=== PATIENT | female | born 1985 | race Caucasian/White ===

== ENCOUNTER 2018-05-09 13:35 | Day surgery (SDC) | payer OTHER ==
[~2018-05-09 13:35] MED LIST: BACL10 PO; BACL20 PO; CITA20 PO; CLON.5 PO; COPAXONE40 MG/1 ML INJ; COPAXONE40 MG/1 ML SQ; Cipro500 MG PO; DULO30 PO; DULO60; HYDHCL25 PO; MIRT15 PO; NITR100 PO; NITR100CA PO; NORT10S PO; TAMS.4ER PO; TECFIDERA240 MG PO; TOLT2ER PO; TRAZ50 PO; TROSPIUM CHLORI60 MG PO
== END 2018-05-09 14:58 | disposition home or self-care (01) ==
LOC: ATC 13:35
DX: G35 Multiple sclerosis (principal); F41.9 Anxiety disorder, unspecified
CPT/HCPCS: J2930

== ENCOUNTER 2018-05-10 14:31 | Day surgery (SDC) | payer OTHER ==
[2018-05-11] MEDS ORDERED: MONT10T PO (10:17)
[2018-05-11] MEDS ORDERED: OCREVUS300 MG/10 IV (10:17)
[2018-05-11] MEDS ORDERED: Flonase 0.05% N16 GM (10:17)
[2018-05-11] MEDS ORDERED: Mirena1 EACH VAG (10:18)
== END 2018-05-10 15:14 | disposition home or self-care (01) ==
LOC: ATC 14:31
DX: G35 Multiple sclerosis (principal); F41.9 Anxiety disorder, unspecified
CPT/HCPCS: J2930

== ENCOUNTER 2018-05-11 10:05 | Day surgery (SDC) | payer OTHER ==
[2018-05-11] MEDS ORDERED: MONT10T PO (10:17)
[2018-05-11] MEDS ORDERED: Flonase 0.05% N16 GM (10:17)
[2018-05-11] MEDS ORDERED: OCREVUS300 MG/10 IV (10:17)
[2018-05-11] MEDS ORDERED: Mirena1 EACH VAG (10:18)
== END 2018-05-11 10:45 | disposition home or self-care (01) ==
LOC: ATC 10:05
DX: G35 Multiple sclerosis (principal); F41.9 Anxiety disorder, unspecified
CPT/HCPCS: 96365; J2930

== ENCOUNTER 2018-05-12 00:25 | Day surgery (SDC) | payer OTHER ==
[~2018-05-12 00:25] MED LIST changes: +Flonase 0.05% N16 GM; +MONT10T PO; +Mirena1 EACH VAG; +OCREVUS300 MG/10 IV
== END 2018-05-12 16:24 | disposition home or self-care (01) ==
LOC: ATC 00:25
DX: G35 Multiple sclerosis (principal)
CPT/HCPCS: 96365; J2930

== ENCOUNTER → 2018-06-13 | Outpatient (CLI) | payer OTHER ==
[2018-06-14 13:39] LABS: Candida species (DNA Probe) Positive (NEGATIVE); G. vaginalis (DNA Probe) Positive (NEGATIVE); T. vaginalis (DNA Probe) Negative (NEGATIVE)
[2018-06-16 05:52] LABS: CHLAMYDIA TRACHOMATIS, NAA Negative (Negative); NEISSERIA GONORRHOEAE, NAA Negative (Negative)
== END | disposition home or self-care (01) ==
LOC: LAB SHORT 13:30 → LAB 13:30
PROVIDERS: Family Medicine
DX: L29.3 Anogenital pruritus, unspecified (principal); N89.8 Other specified noninflammatory disorders of vagina
CPT/HCPCS: 87480; 87491; 87510; 87591; 87660

== ENCOUNTER → 2019-03-03 | Outpatient (CLI) | payer OTHER ==
[2019-03-03 17:14] LABS: Source, Urine Clean Catch
[2019-03-03 17:58] LABS: Bilirubin, Urine Neg (Neg); Blood, Urine Neg (Neg); Glucose Qualitative, Urine Neg (Neg); Ketones, Urine Neg (Neg); Leukocyte Esterase, Urine 1+ (Neg); Nitrite, Urine Neg (Neg); Protein, Urine Neg (Neg); Specific Gravity, Urine 1.015 (1.003-1.022); Urobilinogen, Urine NORM (Normal)
[2019-03-03 18:20] LABS: Appearance, Urine Clear (Clear); Color, Urine Yellow (P-Yellow)
[2019-03-03 18:23] LABS: Bacteria Many /hpf; Red Blood Cells, Urine 0-2 /hpf (0-2); Squamous Epithelial Cells Few /hpf (Few)
== END | disposition home or self-care (01) ==
LOC: LAB SHORT 17:10 → LAB 17:10 → LAB FUT 03-02 11:15 → EDSTATUS 03-02 11:15
PROVIDERS: Physician Assistant
DX: R39.14 Feeling of incomplete bladder emptying (principal)
CPT/HCPCS: 81001; 87077; 87086; 87186

== ENCOUNTER → 2019-03-09 | Outpatient (CLI) | payer OTHER ==
[2019-03-12 02:08] LABS: CHLAMYDIA TRACHOMATIS, NAA Negative (Negative); NEISSERIA GONORRHOEAE, NAA Negative (Negative)
== END | disposition home or self-care (01) ==
LOC: LAB SHORT 16:30 → LAB 16:30
PROVIDERS: Family Medicine
DX: Z11.3 Encounter for screening for infections with a predominantly sexual mode of transmission (principal); N39.0 Urinary tract infection, site not specified
CPT/HCPCS: 87086; 87491; 87591

== ENCOUNTER → 2019-06-22 | Outpatient (CLI) | payer OTHER | END | disposition home or self-care (01) | LOC: LAB 12:10 → LAB SHORT 12:10 | DX: N39.0 Urinary tract infection, site not specified (principal) | CPT/HCPCS: 87077; 87086; 87186 ==

== ENCOUNTER → 2019-09-28 | Outpatient (CLI) | payer OTHER ==
[~2019-09-28] MED LIST changes: +AMIT25 PO; +HIPREX1 GM PO; +METPHE10 PO; +Zanaflex4 MG PO
== END | disposition home or self-care (01) ==
LOC: LAB SHORT 18:53 → LAB 18:53
DX: N39.0 Urinary tract infection, site not specified (principal); R30.0 Dysuria
CPT/HCPCS: 87086; 87147

== ENCOUNTER 2019-09-29 15:32 | Day surgery (SDC) | payer OTHER ==
[~2019-09-29 15:32] MED LIST changes: -AMIT25 PO; -HIPREX1 GM PO; -METPHE10 PO; -Zanaflex4 MG PO
[2019-09-29] MEDS ORDERED: Zanaflex4 MG PO (17:16)
[2019-09-29] MEDS ORDERED: HIPREX1 GM PO (17:17)
[2019-09-29] MEDS ORDERED: METPHE10 PO (17:17)
[2019-09-29] MEDS ORDERED: AMIT25 PO (17:19)
== END 2019-09-29 17:48 | disposition home or self-care (01) ==
LOC: ATC 15:32
DX: G35 Multiple sclerosis (principal); F41.9 Anxiety disorder, unspecified; K21.9 Gastro-esophageal reflux disease without esophagitis; F32.9 Major depressive disorder, single episode, unspecified; G47.00 Insomnia, unspecified; Z88.1 Allergy status to other antibiotic agents; Z88.8 Allergy status to other drugs, medicaments and biological substances; Z79.51 Long term (current) use of inhaled steroids; Z79.52 Long term (current) use of systemic steroids; Z79.899 Other long term (current) drug therapy
CPT/HCPCS: 96365; J2930

== ENCOUNTER 2019-09-30 17:34 | Day surgery (SDC) | payer OTHER ==
[~2019-09-30 17:34] MED LIST changes: +AMIT25 PO; +HIPREX1 GM PO; +METPHE10 PO; +Zanaflex4 MG PO
== END 2019-09-30 23:11 | disposition home or self-care (01) ==
LOC: ATC 17:34
DX: G35 Multiple sclerosis (principal); F41.9 Anxiety disorder, unspecified; K21.9 Gastro-esophageal reflux disease without esophagitis; F32.9 Major depressive disorder, single episode, unspecified; G47.00 Insomnia, unspecified; Z79.51 Long term (current) use of inhaled steroids; Z88.1 Allergy status to other antibiotic agents; Z88.8 Allergy status to other drugs, medicaments and biological substances; Z79.52 Long term (current) use of systemic steroids; Z79.899 Other long term (current) drug therapy
CPT/HCPCS: 96365; J2930

== ENCOUNTER 2019-10-01 11:25 | Day surgery (SDC) | payer OTHER | END 2019-10-01 23:12 | disposition home or self-care (01) | LOC: ATC 11:25 | DX: G35 Multiple sclerosis (principal); F41.9 Anxiety disorder, unspecified; F32.9 Major depressive disorder, single episode, unspecified; G47.00 Insomnia, unspecified; K21.9 Gastro-esophageal reflux disease without esophagitis; Z79.52 Long term (current) use of systemic steroids; Z79.2 Long term (current) use of antibiotics; Z79.899 Other long term (current) drug therapy; Z88.1 Allergy status to other antibiotic agents | CPT/HCPCS: 96365; J2930 ==

== ENCOUNTER 2019-10-03 10:49 | Day surgery (SDC) | payer OTHER ==
--- NOTE | 2019-10-03 11:40 | NUR ---
AFTER THREE ATTEMPTS VALERIO BILLINGS RN USED AN ULTRASOUND MACHINE TO PLACE A 20G IV TO PT'S LEFT UPPER ARM
== END 2019-10-03 12:11 | disposition home or self-care (01) ==
LOC: ATC 10:49
DX: G35 Multiple sclerosis (principal); F41.9 Anxiety disorder, unspecified; F32.9 Major depressive disorder, single episode, unspecified; G47.00 Insomnia, unspecified; K21.9 Gastro-esophageal reflux disease without esophagitis; Z79.52 Long term (current) use of systemic steroids; Z79.2 Long term (current) use of antibiotics; Z79.899 Other long term (current) drug therapy; Z88.1 Allergy status to other antibiotic agents
CPT/HCPCS: 96365; J2930

== ENCOUNTER → 2020-02-11 | Outpatient (CLI) | payer OTHER | END | disposition home or self-care (01) | LOC: LAB SHORT 12:30 → LAB 12:30 | DX: N39.0 Urinary tract infection, site not specified (principal) | CPT/HCPCS: 87077; 87086; 87147; 87186 ==

== ENCOUNTER → 2020-04-19 | Outpatient (CLI) | payer OTHER | END | disposition home or self-care (01) | LOC: LAB SHORT 15:12 → LAB 15:12 → LAB SHORT 04-20 15:12 | DX: N39.0 Urinary tract infection, site not specified (principal) | CPT/HCPCS: 87077; 87086; 87186 ==

== ENCOUNTER 2020-07-21 01:52 | Day surgery (SDC) | payer OTHER ==
[~2020-07-21 01:52] MED LIST changes: +FLUT.05NI; -Flonase 0.05% N16 GM; +HIPREX1 G1 PO; -HIPREX1 GM PO
[2020-07-21] MEDS ORDERED: GABA300 PO (17:34)
== END 2020-07-21 22:57 | disposition home or self-care (01) ==
LOC: ATC 01:52
DX: G35 Multiple sclerosis (principal); Z88.8 Allergy status to other drugs, medicaments and biological substances; F32.9 Major depressive disorder, single episode, unspecified; Z79.899 Other long term (current) drug therapy; F41.9 Anxiety disorder, unspecified
CPT/HCPCS: J2930

== ENCOUNTER 2020-07-22 05:28 | Day surgery (SDC) | payer OTHER ==
[~2020-07-22 05:28] MED LIST changes: +GABA300 PO
== END 2020-07-22 14:25 | disposition home or self-care (01) ==
LOC: ATC 05:28
DX: G35 Multiple sclerosis (principal); F32.9 Major depressive disorder, single episode, unspecified; F41.9 Anxiety disorder, unspecified; Z79.52 Long term (current) use of systemic steroids; Z79.51 Long term (current) use of inhaled steroids; Z79.899 Other long term (current) drug therapy; Z88.1 Allergy status to other antibiotic agents
CPT/HCPCS: J2930

== ENCOUNTER 2020-07-23 00:58 | Day surgery (SDC) | payer OTHER | END 2020-07-23 14:34 | disposition home or self-care (01) | LOC: ATC 00:58 | DX: G35 Multiple sclerosis (principal); Z88.1 Allergy status to other antibiotic agents; F41.9 Anxiety disorder, unspecified; F32.9 Major depressive disorder, single episode, unspecified; Z79.899 Other long term (current) drug therapy | CPT/HCPCS: J2930 ==

== ENCOUNTER 2020-07-24 14:00 | Day surgery (SDC) | payer OTHER | END 2020-07-24 17:15 | disposition home or self-care (01) | LOC: ATC 14:00 | DX: G35 Multiple sclerosis (principal); Z79.899 Other long term (current) drug therapy; Z88.1 Allergy status to other antibiotic agents | CPT/HCPCS: 96365; J2930 ==

== ENCOUNTER → 2020-09-08 | Outpatient (CLI) | payer OTHER | END | disposition home or self-care (01) | LOC: LAB SHORT 18:26 | DX: N39.0 Urinary tract infection, site not specified (principal) | CPT/HCPCS: 87077; 87086; 87147; 87186 ==

== ENCOUNTER → 2021-03-23 | Outpatient (CLI) | payer OTHER | END | disposition home or self-care (01) | LOC: LAB 12:00 → LAB SHORT 12:00 | DX: N39.0 Urinary tract infection, site not specified (principal) | CPT/HCPCS: 87077; 87086; 87186 ==

== ENCOUNTER 2021-06-28 01:39 | Day surgery (SDC) | payer OTHER ==
[2021-06-28] MEDS ORDERED: DROSPIRENONE-E1 EAC4 PO (17:29)
== END 2021-06-28 17:51 | disposition home or self-care (01) ==
LOC: ATC 01:39
DX: G35 Multiple sclerosis (principal); Z88.1 Allergy status to other antibiotic agents
CPT/HCPCS: 96365; J2930

== ENCOUNTER 2021-06-29 01:39 | Day surgery (SDC) | payer OTHER ==
[~2021-06-29 01:39] MED LIST changes: +DROSPIRENONE-E1 EAC4 PO
== END 2021-06-29 17:01 | disposition home or self-care (01) ==
LOC: ATC 01:39
DX: G35 Multiple sclerosis (principal); Z88.1 Allergy status to other antibiotic agents
CPT/HCPCS: 96365; J2930

== ENCOUNTER 2021-06-30 04:50 | Day surgery (SDC) | payer OTHER | END 2021-06-30 14:30 | disposition home or self-care (01) | LOC: ATC 04:50 | DX: G35 Multiple sclerosis (principal); Z88.1 Allergy status to other antibiotic agents; Z79.899 Other long term (current) drug therapy | CPT/HCPCS: 96365; J2930 ==

== ENCOUNTER 2021-07-01 05:14 | Day surgery (SDC) | payer OTHER | END 2021-07-01 14:25 | disposition home or self-care (01) | LOC: ATC 05:14 | DX: G35 Multiple sclerosis (principal); Z79.899 Other long term (current) drug therapy; Z88.1 Allergy status to other antibiotic agents | CPT/HCPCS: 96365; J2930 ==

== ENCOUNTER → 2021-09-03 | Outpatient (CLI) | payer OTHER ==
[2021-09-04 09:42] LABS: Candida species (DNA Probe) Negative (NEGATIVE); G. vaginalis (DNA Probe) Negative (NEGATIVE); T. vaginalis (DNA Probe) Negative (NEGATIVE)
[2021-09-05 01:11] LABS: CHLAMYDIA TRACHOMATIS, NAA Negative (Negative)
== END | disposition home or self-care (01) ==
LOC: LAB 15:21 → LAB SHORT 15:21
PROVIDERS: Family Medicine
DX: Z11.3 Encounter for screening for infections with a predominantly sexual mode of transmission (principal); N89.8 Other specified noninflammatory disorders of vagina; N39.0 Urinary tract infection, site not specified
CPT/HCPCS: 87077; 87086; 87186; 87480; 87491; 87510; 87591; 87660

== ENCOUNTER → 2022-04-13 | Outpatient (CLI) | payer OTHER | END | disposition home or self-care (01) | LOC: LAB SHORT 13:00 | DX: N39.0 Urinary tract infection, site not specified (principal) | CPT/HCPCS: 87077; 87086; 87147; 87186 ==

== ENCOUNTER 2022-05-23 00:06 | Day surgery (SDC) | payer OTHER ==
[2022-05-23] MEDS ORDERED: ATEN25 PO (09:37)
[2022-05-23] MEDS ORDERED: DALFAMPRIDINE E10 MG PO (09:38)
[2022-05-23] MEDS ORDERED: MONT10T PO (09:40)
[2022-05-23] MEDS ORDERED: Sanctura20 MG PO (09:41)
== END 2022-05-23 10:01 | disposition home or self-care (01) ==
LOC: ATC 00:06
DX: G35 Multiple sclerosis (principal); Z88.1 Allergy status to other antibiotic agents; Z79.899 Other long term (current) drug therapy
CPT/HCPCS: 96365; J2930

== ENCOUNTER → 2022-06-01 | Outpatient (CLI) | payer OTHER ==
[~2022-06-01] MED LIST changes: +ATEN25 PO; +DALFAMPRIDINE E10 MG PO; +Sanctura20 MG PO
== END | disposition home or self-care (01) ==
LOC: LAB SHORT 12:20 → LAB 12:20
DX: Z09 Encounter for follow-up examination after completed treatment for conditions other than malignant neoplasm (principal); Z87.440 Personal history of urinary (tract) infections
CPT/HCPCS: 87086; 87147

== ENCOUNTER 2022-06-20 08:51 | Day surgery (SDC) | payer OTHER ==
[~2022-06-20] VITALS: Ht 160 cm; Wt 66.4 kg
[2022-06-20] MEDS ORDERED: AMPDEX5 (09:39)
== END 2022-06-20 11:28 | disposition home or self-care (01) ==
LOC: ORSCSDS 08:51
PROVIDERS: Student in an Organized Health Care Education/Training Program
PROC: 0DBM8ZX Excision of Descending Colon, Via Natural or Artificial Opening Endoscopic, Diagnostic (ICD-10-PCS; principal; 2022-06-20 10:00)
DX: K92.1 Melena (principal); K59.00 Constipation, unspecified; R11.0 Nausea; G35 Multiple sclerosis; F41.8 Other specified anxiety disorders; Z79.899 Other long term (current) drug therapy
CPT/HCPCS: 88305; J2704; J7120

== ENCOUNTER → 2022-06-24 | Outpatient (CLI) | payer OTHER ==
[~2022-06-24] MED LIST changes: +AMPDEX5
== END | disposition home or self-care (01) ==
LOC: LAB SHORT 12:30 → LAB 12:30
DX: R35.0 Frequency of micturition (principal)
CPT/HCPCS: 87077; 87086; 87147; 87186

== ENCOUNTER → 2022-11-08 | Outpatient (CLI) | payer OTHER ==
[2022-11-09 13:54] LABS: Candida species (DNA Probe) Negative (NEGATIVE); G. vaginalis (DNA Probe) Negative (NEGATIVE); T. vaginalis (DNA Probe) Negative (NEGATIVE)
== END | disposition home or self-care (01) ==
LOC: LAB SHORT 13:07 → LAB 13:07
PROVIDERS: Advanced Practice Midwife
DX: N76.0 Acute vaginitis (principal)
CPT/HCPCS: 87480; 87510; 87660

== ENCOUNTER → 2022-11-15 | Outpatient (CLI) | payer OTHER | LOC: LAB SHORT 19:04 | PROVIDERS: Advanced Practice Midwife | DX: Z01.419 Encounter for gynecological examination (general) (routine) without abnormal findings (principal); Z11.3 Encounter for screening for infections with a predominantly sexual mode of transmission; N76.0 Acute vaginitis | CPT/HCPCS: 87070; 87205 ==

== ENCOUNTER 2023-01-08 01:24 | Day surgery (SDC) | payer OTHER ==
[2023-01-08 11:19] VITALS: BP 125/68
== END 2023-01-08 11:50 | disposition home or self-care (01) ==
LOC: ATC 01:24
DX: G35 Multiple sclerosis (principal); Z88.1 Allergy status to other antibiotic agents; Z88.8 Allergy status to other drugs, medicaments and biological substances
CPT/HCPCS: 96365; J2930

== ENCOUNTER 2023-01-09 01:17 | Day surgery (SDC) | payer OTHER ==
[2023-01-09 11:05] VITALS: BP 125/84
== END 2023-01-09 11:37 | disposition home or self-care (01) ==
LOC: ATC 01:17
DX: G35 Multiple sclerosis (principal)
CPT/HCPCS: 96365; J2930

== ENCOUNTER 2023-01-10 00:35 | Day surgery (SDC) | payer OTHER ==
[2023-01-10 11:07] VITALS: BP 115/76
== END 2023-01-10 11:41 | disposition home or self-care (01) ==
LOC: ATC 00:35
DX: G35 Multiple sclerosis (principal)
CPT/HCPCS: 96365; J2930

== ENCOUNTER → 2023-01-22 | Outpatient (CLI) | payer OTHER ==
[2023-01-22 13:59] LABS: Candida species (DNA Probe) Negative (NEGATIVE); G. vaginalis (DNA Probe) Negative (NEGATIVE); T. vaginalis (DNA Probe) Negative (NEGATIVE)
== END | disposition home or self-care (01) ==
LOC: LAB SHORT 10:52 → LAB 10:52
PROVIDERS: Advanced Practice Midwife
DX: N76.0 Acute vaginitis (principal)
CPT/HCPCS: 87480; 87510; 87660

== ENCOUNTER → 2023-06-03 | Outpatient (CLI) | payer OTHER ==
[2023-06-04 10:53] LABS: Candida species (DNA Probe) Negative (NEGATIVE); G. vaginalis (DNA Probe) Positive (NEGATIVE); T. vaginalis (DNA Probe) Negative (NEGATIVE)
[2023-06-08 11:07] LABS: HPV 16 Negative (Negative); HPV 18 Negative (Negative); HPV OTHER HR TYPES Negative (Negative)
== END | disposition home or self-care (01) ==
LOC: LAB 11:27 → LAB SHORT 11:27
PROVIDERS: Advanced Practice Midwife
DX: Z01.419 Encounter for gynecological examination (general) (routine) without abnormal findings (principal); N76.0 Acute vaginitis
CPT/HCPCS: 87480; 87510; 87624; 87660; G0145

== ENCOUNTER → 2023-06-04 | Outpatient (CLI) | payer OTHER | LOC: LAB 17:27 → LAB SHORT 17:27 | DX: N39.0 Urinary tract infection, site not specified (principal) | CPT/HCPCS: 87077; 87086; 87147; 87186 ==

== ENCOUNTER 2023-12-30 00:59 | Day surgery (SDC) | payer OTHER ==
[2023-12-30] MEDS ORDERED: MethylPREDNISolone Sod Succ 1,000 MG in Dextrose 5% 50 ML IV SCH (06:00)
[2023-12-30 07:37] VITALS: BP 129/84
[2023-12-30] MEDS ORDERED: ESZO3 PO (07:38)
== END 2023-12-30 08:42 | disposition home or self-care (01) ==
LOC: ATC 00:59
DX: G35 Multiple sclerosis (principal); F32.A Depression, unspecified; F41.9 Anxiety disorder, unspecified; Z79.899 Other long term (current) drug therapy; Z88.1 Allergy status to other antibiotic agents
CPT/HCPCS: 96365; J2930

== ENCOUNTER 2023-12-31 01:33 | Day surgery (SDC) | payer OTHER ==
[~2023-12-31 01:33] MED LIST changes: +ESZO3 PO
[2023-12-31] MEDS ORDERED: MethylPREDNISolone Sod Succ 1,000 MG in Dextrose 5% 50 ML IV SCH (06:00)
[2023-12-31 16:40] VITALS: BP 112/78
== END 2023-12-31 17:18 | disposition home or self-care (01) ==
LOC: ATC 01:33
DX: G35 Multiple sclerosis (principal)
CPT/HCPCS: 96365; J2930

== ENCOUNTER 2024-01-01 08:37 | Day surgery (SDC) | payer OTHER ==
[~2024-01-01 08:37] MED LIST changes: +MethylPREDNISolone Sod Succ 1,000 MG in Dextrose 5% 50 ML IV SCH
[2024-01-01 11:19] VITALS: BP 126/86
== END 2024-01-01 11:50 | disposition home or self-care (01) ==
LOC: ATC 08:37
DX: G35 Multiple sclerosis (principal); Z88.1 Allergy status to other antibiotic agents
CPT/HCPCS: 96365; J2930

== ENCOUNTER 2024-01-02 02:55 | Day surgery (SDC) | payer OTHER ==
[~2024-01-02 02:55] MED LIST changes: -MethylPREDNISolone Sod Succ 1,000 MG in Dextrose 5% 50 ML IV SCH
[2024-01-02] MEDS ORDERED: MethylPREDNISolone Sod Succ 1,000 MG in Dextrose 5% 50 ML IV SCH (06:00)
[2024-01-02 16:48] VITALS: BP 116/80
--- NOTE | 2024-01-02 17:20 | NUR ---
END TIME: [id number]
== END 2024-01-02 17:15 | disposition home or self-care (01) ==
LOC: ATC 02:55
DX: G35 Multiple sclerosis (principal)
CPT/HCPCS: 96365; J2930

== ENCOUNTER → 2024-01-20 | Outpatient (CLI) | payer OTHER ==
[2024-01-22 23:03] LABS: APTIMA MEDIA TYPE ThinPrep; C. TRACHOMATIS BY TMA Negative (Negative); N. GONORRHOEAE BY TMA Negative (Negative); SPECIMEN SOURCE Cervical; T. VAGINALIS BY TMA Negative (Negative)
[2024-01-24 11:56] LABS: HPV HIGH RISK BY TMA Not Detected; HPV SOURCE Cervical
== END ==
LOC: LAB 13:46 → LAB SHORT 13:46
PROVIDERS: Family Medicine
DX: Z20.2 Contact with and (suspected) exposure to infections with a predominantly sexual mode of transmission (principal); Z87.42 Personal history of other diseases of the female genital tract
CPT/HCPCS: 87491; 87591; 87661

== ENCOUNTER 2024-12-27 01:43 | Day surgery (SDC) | payer OTHER ==
[2024-12-27] MEDS ORDERED: OCRELIZUMAB 600 MG in NS 500 ML IV SCH (06:00)
[2024-12-27] MEDS ORDERED: MethylPREDNISolone Sod Succ 125 MG Vial IV SCH (07:10)
[2024-12-27] MEDS ORDERED: Acetaminophen 325 MG TABLET PO SCH (07:10)
[2024-12-27 08:06] VITALS: BP 115/97
[2024-12-27 09:54] VITALS: BP 113/81
[2024-12-27 10:24] VITALS: BP 119/79
[2024-12-27 13:54] VITALS: BP 127/77
== END 2024-12-27 14:00 | disposition home or self-care (01) ==
LOC: ATC 01:43
DX: G35 Multiple sclerosis (principal); F51.04 Psychophysiologic insomnia; Z88.1 Allergy status to other antibiotic agents; Z79.899 Other long term (current) drug therapy
CPT/HCPCS: 96365; 96366; 96375; A9270; J2350; J2919; J7040

== ENCOUNTER → 2025-01-20 | Outpatient (CLI) | payer OTHER ==
[2025-01-20 20:31] LABS: Bacterial Vaginosis PCR Negative (NEGATIVE); Candida Group, PCR NOT DETECTED (NOT DETECT); Candida glabrata-krusei, PCR NOT DETECTED (NOT DETECT)
[2025-01-24 07:18] LABS: C. TRACHOMATIS BY TMA,THINPREP Negative (Negative); N. GONORRHOEAE BY TMA,THINPREP Negative (Negative); SPECIMEN SOURCE Cervical
[2025-02-09 07:56] LABS: HPV HIGH RISK BY TMA Not Detected; HPV SOURCE Vaginal
== END | disposition home or self-care (01) ==
LOC: LAB SHORT 18:38 → LAB 18:38
PROVIDERS: Family Medicine
DX: Z01.419 Encounter for gynecological examination (general) (routine) without abnormal findings (principal); Z11.3 Encounter for screening for infections with a predominantly sexual mode of transmission; N89.8 Other specified noninflammatory disorders of vagina
CPT/HCPCS: 81515; 87491; 87591; 87624; G0123

== ENCOUNTER 2025-06-28 01:14 | Day surgery (SDC) | payer OTHER ==
[2025-06-28] MEDS ORDERED: OCRELIZUMAB 600 MG in NS 500 ML IV SCH (06:00)
[2025-06-28 13:30] VITALS: BP 117/73
[2025-06-28] MEDS ORDERED: AMPYRA10 MG PO (13:54)
[2025-06-28 14:58] VITALS: BP 119/75
[2025-06-28 15:32] VITALS: BP 116/82
[2025-06-28 18:48] VITALS: BP 112/73
--- NOTE | 2025-06-28 18:54 | NUR ---
1 HOUR POST INFUSION OBSERVATION COMPLETED. PT DISPLAYS NO SIGNS OF MEDICATION REACTION. PT AWARE TO GO TO ER IF SHE BEGINS TO FEEL UNWELL.
== END 2025-06-28 18:51 | disposition home or self-care (01) ==
LOC: ATC 01:14
DX: G35.A Relapsing-remitting multiple sclerosis (principal); F51.04 Psychophysiologic insomnia
CPT/HCPCS: A9270; J2350; J2919; J7040

== ENCOUNTER 2025-07-06 17:55 | Emergency (ER) | payer OTHER ==
[~2025-07-06] VITALS: Ht 160 cm; Wt 56.7 kg
[~2025-07-06 17:55] MED LIST changes: +AMPYRA10 MG PO
[2025-07-06 18:31] VITALS: BP 159/94
[2025-07-06 19:02] LABS: BASOPHILS ABSOLUTE AUTO 0.10 K/mm3 (0.00-0.23); BASOPHILS PERCENT AUTO 1 % (0-2); EOSINOPHILS ABSOLUTE AUTO 0.22 K/mm3 (0.00-0.68); EOSINOPHILS PERCENT AUTO 1 % (0-6); Hematocrit 39.9 % (33.0-51.0); Hemoglobin 12.8 g/dL (11.5-16.0); IMMATURE GRAN ABSOLUTE AUTO 0.10 K/mm3 (0.00-0.10); IMMATURE GRAN PERCENT AUTO 1 % (0-1); LYMPHOCYTES ABSOLUTE AUTO 4.01 K/mm3 (0.84-5.20); LYMPHOCYTES PERCENT AUTO 19 % (21-46); MONOCYTES ABSOLUTE AUTO 1.17 K/mm3 (0.16-1.47); MONOCYTES PERCENT AUTO 6 % (4-13); Mean Corpuscular HGB Conc 32.1 g/dL (31.5-36.5); Mean Corpuscular Volume 84 fL (80-100); NEUTROPHILS ABSOLUTE AUTO 15.24 K/mm3 (1.96-9.15); NEUTROPHILS PERCENT AUTO 73 % (41-73); NRBC ABSOLUTE 0.00 K/mm3 (0.00-0.02); NRBC Auto 0.0 /100 WBC (0.0-0.2); Platelet Count 425 K/mm3 (150-400); RDW Coefficient Variation 16.4 % (11.7-14.2); RDW Standard Deviation 50.3 fL (35.1-46.3)
[2025-07-06] MEDS ORDERED: HYDROcodone 5-APAP 325 TAB PO ONE (19:05)
[2025-07-06 19:35] LABS: Alanine Aminotransfer (ALT/SGP 23.0 U/L (12-78); Albumin, Blood 3.9 g/dL (3.4-5.0); Albumin/Globulin Ratio 1.2 (0.8-1.8); Anion Gap 10.0 mmol/L (3-11); Aspartate Aminotrans (AST/SGOT 8.0 U/L (12-37); Bilirubin, Total 0.2 mg/dL (0.1-1.0); Blood Urea Nitrogen 12.0 mg/dL (8-24); CO2, Blood 23.0 mmol/L (21-32); Calcium, Blood 9.6 mg/dL (8.5-10.1); Chloride, Blood 107.0 mmol/L (98-108); Creatinine, Blood 0.68 mg/dL (0.40-1.00); Globulin, Blood 3.3 g/dL (2.2-4.0); Glucose, Blood 90.0 mg/dL (70-99); Potassium, Blood 4.1 mmol/L (3.5-5.5); Sodium, Blood 136.0 mmol/L (136-145); Total Protein, Blood 7.2 g/dL (6.4-8.2)
[2025-07-06] MEDS ORDERED: Ketorolac Tromethamine 15mg Vial IV ONE (20:50)
[2025-07-06] MEDS ORDERED: Robaxin750 MG PO (21:15)
== END 2025-07-06 21:25 | disposition home or self-care (01) ==
LOC: ER 17:55
PROVIDERS: Student in an Organized Health Care Education/Training Program
DX: T71.193A Asphyxiation due to mechanical threat to breathing due to other causes, assault, initial encounter (principal); G35.D Multiple sclerosis, unspecified; Z88.1 Allergy status to other antibiotic agents; Z79.899 Other long term (current) drug therapy
CPT/HCPCS: 70486; 70498; 80053; 85025; 96374-59; 99284-25; A9270; J1885; Q9967

== ENCOUNTER 2025-09-17 16:57 | Inpatient (IN) | payer OTHER ==
[~2025-09-17] VITALS: Ht 162.6 cm; Wt 55.0 kg
[~2025-09-17 16:57] MED LIST changes: +Robaxin750 MG PO
[2025-09-17 17:48] LABS: BASOPHILS ABSOLUTE AUTO 0.05 K/mm3 (0.00-0.23); BASOPHILS PERCENT AUTO 1 % (0-2); EOSINOPHILS ABSOLUTE AUTO 0.01 K/mm3 (0.00-0.68); EOSINOPHILS PERCENT AUTO 0 % (0-6); Hematocrit 40.9 % (33.0-51.0); Hemoglobin 13.2 g/dL (11.5-16.0); IMMATURE GRAN ABSOLUTE AUTO 0.04 K/mm3 (0.00-0.10); IMMATURE GRAN PERCENT AUTO 0 % (0-1); LYMPHOCYTES ABSOLUTE AUTO 1.58 K/mm3 (0.84-5.20); LYMPHOCYTES PERCENT AUTO 14 % (21-46); MONOCYTES ABSOLUTE AUTO 1.09 K/mm3 (0.16-1.47); MONOCYTES PERCENT AUTO 10 % (4-13); Mean Corpuscular HGB Conc 32.3 g/dL (31.5-36.5); Mean Corpuscular Volume 86 fL (80-100); NEUTROPHILS ABSOLUTE AUTO 8.30 K/mm3 (1.96-9.15); NEUTROPHILS PERCENT AUTO 75 % (41-73); NRBC ABSOLUTE 0.00 K/mm3 (0.00-0.02); NRBC Auto 0.0 /100 WBC (0.0-0.2); Platelet Count 334 K/mm3 (150-400); RDW Coefficient Variation 16.5 % (11.7-14.2); RDW Standard Deviation 51.1 fL (35.1-46.3)
[2025-09-17 18:14] LABS: Alanine Aminotransfer (ALT/SGP 22.0 U/L (12-78); Albumin, Blood 3.9 g/dL (3.4-5.0); Albumin/Globulin Ratio 1.3 (0.8-1.8); Anion Gap 8.0 mmol/L (3-11); Aspartate Aminotrans (AST/SGOT 10.0 U/L (12-37); Bilirubin, Total 0.2 mg/dL (0.1-1.0); Blood Urea Nitrogen 10.0 mg/dL (8-24); CO2, Blood 25.0 mmol/L (21-32); Calcium, Blood 8.9 mg/dL (8.5-10.1); Chloride, Blood 106.0 mmol/L (98-108); Creatinine, Blood 0.76 mg/dL (0.40-1.00); Globulin, Blood 3.1 g/dL (2.2-4.0); Glucose, Blood 109.0 mg/dL (70-99); Magnesium, Blood 2.0 mg/dL (1.6-2.4); Potassium, Blood 3.9 mmol/L (3.5-5.5); Sodium, Blood 135.0 mmol/L (136-145); Thyroid Stimulating Hormone 0.149 uIU/mL (0.360-4.800); Total Protein, Blood 7.0 g/dL (6.4-8.2)
[2025-09-17 18:37] LABS: Source, Urine Clean Catch
[2025-09-17 18:39] LABS: Influenza A, PCR NEGATIVE (NEGATIVE); Influenza B, PCR NEGATIVE (NEGATIVE); Resp Syncytial Virus, PCR NEGATIVE (NEGATIVE)
[2025-09-17 18:42] LABS: Bilirubin, Urine Neg (Neg); Color, Urine Yellow (P-Yellow); Glucose Qualitative, Urine Neg (Neg); Ketones, Urine Neg (Neg); Leukocyte Esterase, Urine 2+ (Neg); Protein, Urine 2+ (Neg); Specific Gravity, Urine 1.025 (1.003-1.022); Urobilinogen, Urine NORM (Normal)
[2025-09-17] MEDS ORDERED: CefTRIAXone Sodium 1,000 MG in NS 100 ML IV ONE (19:20)
[2025-09-17] MEDS ORDERED: Ondansetron HCl 2 MG / ML 2ML Vial IV PRN (21:15)
[2025-09-17] MEDS ORDERED: FLU VACC TS2025-26(6MOS UP)/PF 45 MCG/0.5 ML SYRINGE IM SCH (21:15)
[2025-09-17] MEDS ORDERED: Oxybutynin Chlo10 MG PO (21:19)
[2025-09-17] MEDS ORDERED: METPHE20 PO (21:20)
[2025-09-17] MEDS ORDERED: NS 1,000 ML IV SCH (21:20)
[2025-09-17] MEDS ORDERED: Lidocaine 2% Jelly Uro-Jet UR ONE (22:00)
[2025-09-17 22:38] LABS: SARS-Cov-2 (COVID-19) PCR, MMC POSITIVE (NEGATIVE)
[2025-09-17 23:25] VITALS: BP 112/74
[2025-09-18] MEDS ORDERED: Misc. Tablet PO SCH ×2 (02:03→02:05)
[2025-09-18 04:32] VITALS: BP 97/65
[2025-09-18 04:47] LABS: BASOPHILS ABSOLUTE AUTO 0.02 K/mm3 (0.00-0.23); BASOPHILS PERCENT AUTO 0 % (0-2); EOSINOPHILS ABSOLUTE AUTO 0.00 K/mm3 (0.00-0.68); EOSINOPHILS PERCENT AUTO 0 % (0-6); Hematocrit 35.3 % (33.0-51.0); Hemoglobin 11.7 g/dL (11.5-16.0); IMMATURE GRAN ABSOLUTE AUTO 0.03 K/mm3 (0.00-0.10); IMMATURE GRAN PERCENT AUTO 0 % (0-1); LYMPHOCYTES ABSOLUTE AUTO 0.98 K/mm3 (0.84-5.20); LYMPHOCYTES PERCENT AUTO 10 % (21-46); MONOCYTES ABSOLUTE AUTO 0.17 K/mm3 (0.16-1.47); MONOCYTES PERCENT AUTO 2 % (4-13); Mean Corpuscular HGB Conc 33.1 g/dL (31.5-36.5); Mean Corpuscular Volume 84 fL (80-100); NEUTROPHILS ABSOLUTE AUTO 8.93 K/mm3 (1.96-9.15); NEUTROPHILS PERCENT AUTO 88 % (41-73); NRBC ABSOLUTE 0.00 K/mm3 (0.00-0.02); NRBC Auto 0.0 /100 WBC (0.0-0.2); Platelet Count 290 K/mm3 (150-400); RDW Coefficient Variation 16.5 % (11.7-14.2); RDW Standard Deviation 51.1 fL (35.1-46.3)
[2025-09-18 05:10] LABS: Alanine Aminotransfer (ALT/SGP 22.0 U/L (12-78); Albumin, Blood 3.2 g/dL (3.4-5.0); Albumin/Globulin Ratio 1.1 (0.8-1.8); Anion Gap 8.0 mmol/L (3-11); Aspartate Aminotrans (AST/SGOT 18.0 U/L (12-37); Bilirubin, Total 0.3 mg/dL (0.1-1.0); Blood Urea Nitrogen 15.0 mg/dL (8-24); CO2, Blood 25.0 mmol/L (21-32); Calcium, Blood 8.7 mg/dL (8.5-10.1); Chloride, Blood 107.0 mmol/L (98-108); Creatinine, Blood 0.67 mg/dL (0.40-1.00); Globulin, Blood 2.9 g/dL (2.2-4.0); Glucose, Blood 217.0 mg/dL (70-99); Potassium, Blood 4.0 mmol/L (3.5-5.5); Sodium, Blood 136.0 mmol/L (136-145); Total Protein, Blood 6.1 g/dL (6.4-8.2)
[2025-09-18 07:30] VITALS: BP 93/68
[2025-09-18] MEDS ORDERED: Enoxaparin 40 MG/0.4 ML SYR SC SCH (09:00)
[2025-09-18] MEDS ORDERED: Lactobacil 2-S.Thermo-Bifido 1 1 Cap PO SCH (09:00)
[2025-09-18] MEDS ORDERED: DULoxetine HCL 60 MG Capsule DR PO SCH (09:00)
[2025-09-18 14:27] VITALS: BP 105/73
[2025-09-18] MEDS ORDERED: DEXTROMETHORPHAN/BENZOCAINE 1 EACH LOZENGE MT PRN (14:35)
[2025-09-18] MEDS ORDERED: NS 1,000 ML IV SCH (14:40)
--- NOTE | 2025-09-18 17:19 | NUR ---
SHIFT SUMMARY: A & OX4, CALM, COOPERATIVE. TOLERATING DIET. VSS, ON RA. NIELSEN IN PLACE, DRAINING YELLOW URINE, POS FOR UTI, IV ABX, IV TO LAC, NS AT 75 CONTINUOUS, RECEIVED A DOSE OF IV SOLUMEDROL TODAY. LEG WEAKNESS IMPROVING. PARTICIPATED IN PT AND OT, 1P SBA IN TRANSFERS. C/O LEG PAIN, TYLENOL ALLEVIATED PAIN. MOTHER VISITED TODAY. COVID PRECAUTIONS MAINTAINED. PATIENT CALL LIGHT WITHIN REACH, DEMONSTRATED USE OF CALL LIGHT APPROPRIATELY.
[2025-09-18] MEDS ORDERED: CefTRIAXone Sodium 1,000 MG in NS 100 ML IV SCH (21:00)
[2025-09-18 21:16] VITALS: BP 126/83
[2025-09-19 04:56] VITALS: BP 123/79
[2025-09-19 05:39] LABS: BASOPHILS ABSOLUTE AUTO 0.03 K/mm3 (0.00-0.23); BASOPHILS PERCENT AUTO 0 % (0-2); EOSINOPHILS ABSOLUTE AUTO 0.01 K/mm3 (0.00-0.68); EOSINOPHILS PERCENT AUTO 0 % (0-6); Hematocrit 34.5 % (33.0-51.0); Hemoglobin 11.2 g/dL (11.5-16.0); IMMATURE GRAN ABSOLUTE AUTO 0.21 K/mm3 (0.00-0.10); IMMATURE GRAN PERCENT AUTO 1 % (0-1); LYMPHOCYTES ABSOLUTE AUTO 2.09 K/mm3 (0.84-5.20); LYMPHOCYTES PERCENT AUTO 8 % (21-46); MONOCYTES ABSOLUTE AUTO 1.57 K/mm3 (0.16-1.47); MONOCYTES PERCENT AUTO 6 % (4-13); Mean Corpuscular HGB Conc 32.5 g/dL (31.5-36.5); Mean Corpuscular Volume 85 fL (80-100); NEUTROPHILS ABSOLUTE AUTO 23.61 K/mm3 (1.96-9.15); NEUTROPHILS PERCENT AUTO 86 % (41-73); NRBC ABSOLUTE 0.00 K/mm3 (0.00-0.02); NRBC Auto 0.0 /100 WBC (0.0-0.2); Platelet Count 323 K/mm3 (150-400); RDW Coefficient Variation 16.8 % (11.7-14.2); RDW Standard Deviation 52.0 fL (35.1-46.3)
[2025-09-19 06:11] LABS: Alanine Aminotransfer (ALT/SGP 19.0 U/L (12-78); Albumin, Blood 3.0 g/dL (3.4-5.0); Albumin/Globulin Ratio 1.0 (0.8-1.8); Anion Gap 8.0 mmol/L (3-11); Aspartate Aminotrans (AST/SGOT 8.0 U/L (12-37); Bilirubin, Total 0.2 mg/dL (0.1-1.0); Blood Urea Nitrogen 12.0 mg/dL (8-24); CO2, Blood 24.0 mmol/L (21-32); Calcium, Blood 8.3 mg/dL (8.5-10.1); Chloride, Blood 112.0 mmol/L (98-108); Creatinine, Blood 0.63 mg/dL (0.40-1.00); Globulin, Blood 2.9 g/dL (2.2-4.0); Glucose, Blood 155.0 mg/dL (70-99); Potassium, Blood 4.0 mmol/L (3.5-5.5); Sodium, Blood 140.0 mmol/L (136-145); Total Protein, Blood 5.9 g/dL (6.4-8.2)
--- NOTE | 2025-09-19 06:39 | NUR ---
SHIFT SUMMARY NOC. PT ADMIT FOR MS EXACERBATION, UTI, AND RESPIRATORY SX. PT A/O X4, MAKES NEEDS KNOWN. PT REPORTS IMPROVEMENT IN FATIGUE AND STRENGTHSINCE ADMISSION. NO DESAT EVENTS AND ON RA. NIELSEN PATENT AND DRAINING CLEAR YELLOW URINE. PT RECEIVING ABX PER EMAR, NS RUNNING INBETWEEN. PT MEDICATED WITH TYLENOL X1 FOR SORE THROAT THIS AM. TOLERATING PO INTAKE. CALL LIGHT IN REACH.
[2025-09-19 07:17] VITALS: BP 117/78
[2025-09-19] MEDS ORDERED: AMOX-CLAV 875-1 EAC4 PO (14:16)
[2025-09-19] MEDS ORDERED: HEMADY20 MG PO (14:18)
[2025-09-19] MEDS ORDERED: Diflucan150 MG PO (14:18)
[2025-09-19] MEDS ORDERED: ANTIFUNGAL EXTR92 GM TOP (14:19)
--- NOTE | 2025-09-19 15:40 | NUR ---
DISCHARGE WORKED w/ THERAPY THIS AM & FEELS COMFORTABLE w/ ABILITIES ENOUGHT TO GO HOME. PAIN TOLERABLE. NO RESP DISTRESS JUST MILD COUGH. UNDERSTANDS ISOLATION & NEW MEDS. ESCORTED OUT VIA WC.
== END 2025-09-19 15:35 | disposition home or self-care (01) | DRG 58 ==
LOC: ER 16:57 → MEDS 16:58 → SURS 21:50 → MEDS 21:50 → SURS 21:50
PROVIDERS: Internal Medicine; Student in an Organized Health Care Education/Training Program; ADMIT Internal Medicine
PROC: 3E03329 Introduction of Other Anti-infective into Peripheral Vein, Percutaneous Approach (ICD-10-PCS; principal; 2025-09-17)
PROC: 0T9B70Z Drainage of Bladder with Drainage Device, Via Natural or Artificial Opening (ICD-10-PCS; 2025-09-18)
DX: G35.A Relapsing-remitting multiple sclerosis (principal); U07.1 COVID-19; N30.00 Acute cystitis without hematuria; B37.0 Candidal stomatitis; B96.20 Unspecified Escherichia coli [E. coli] as the cause of diseases classified elsewhere; F41.8 Other specified anxiety disorders; F51.04 Psychophysiologic insomnia; Z88.1 Allergy status to other antibiotic agents; Z79.620 Long term (current) use of immunosuppressive biologic
CPT/HCPCS: 36415; 51701; 51702; 71045; 80053; 81001; 81025; 83605; 83735; 84439; 84443; 85025; 87077; 87086; 87186; 87637; 93005; 93010; 94762; 96365; 96375; 97116; 97161; 97165; 97530; 99285-25; A6590; A9270; G0378; J0696; J1650; J2919; J7030